=== PATIENT | male | born 1965 | race American Indian/Alaskan Native ===

== ENCOUNTER 2020-08-21 20:41 | Observation (INO) | payer MEDICAID ==
[2020-08-21] MEDS ORDERED: ASPIRIN 325 MG TAB PO ONE (23:06)
[2020-08-21] MEDS ORDERED: ONDANSETRON 4 MG/2 ML INJ IV ONE (23:31)
[2020-08-21] MEDS ORDERED: MORPHINE 4 MG/1 ML INJ IV ONE (23:31)
[2020-08-21] MEDS ORDERED: NITROGLYCERIN 2% OINT 1 GM TP ONE (23:31)
[2020-08-21 23:33] LABS: Basophils % (Auto) 0.6 % (0.0-1.8); Eosinophils # (Auto) 0.1 K/mm3 (0.0-0.4); Eosinophils % (Auto) 1.3 % (0.0-4.3); Hematocrit 40.6 % (35.5-45.6); Hemoglobin 13.4 gm/dl (11.8-15.2); Lymphocytes # (Auto) 1.8 K/mm3 (1.2-5.4); Lymphocytes % (Auto) 22.1 % (13.4-35.0); Mean Corpuscular HGB Conc 33 % (32-34); Mean Corpuscular Volume 93 fl (84-94); Monocytes # (Auto) 0.6 K/mm3 (0.0-0.8); Monocytes % (Auto) 7.3 % (0.0-7.3); Platelet Count 273 K/mm3 (140-440); Red Blood Count 4.37 M/mm3 (3.65-5.03); Red Cell Distribution Width 14.5 % (13.2-15.2)
--- NOTE | 2020-08-21 23:35 | Emergency Department Report ---
HPI - General Chief Complaint: High BP Time Seen by Provider: 08/21/20 23:23 - HPI HPI: Room 43 The patient is a 54-year-old male present with a chief complaint of chest pain and hypertension. The patient states he went to [facility] today to detox from cocaine and during intake he was found to be hypertensive and had complained of chest pain so he was sent to the ED for medical clearance. Patient states he developed substernal chest pain today and has been sharp and intermittent in nature. Patient admits to shortness of breath associated with this chest pain but denies nausea/vomiting or diaphoresis. Patient states his last cocaine use occurred 3 days prior to arrival. Patient states his last stress test occurred approximate 1 year ago but he is never had a cardiac catheterization ED Past Medical Hx - Past Medical History Hx Hypertension: Yes Hx Congestive Heart Failure: Yes - Surgical History Additional Surgical History: left knee - Family History Family history: no significant - Social History Smoking Status: Never Smoker Substance Use Type: Alcohol (Occasional), Cocaine ED Review of Systems ROS: Stated complaint: ELEVATED BLOOD PRESSURE Other details as noted in HPI Constitutional: denies: diaphoresis Respiratory: shortness of breath Cardiovascular: chest pain Endocrine: no symptoms reported Gastrointestinal: denies: nausea, vomiting Physical Exam - Physical Exam Vital Signs: Vital Signs 08/21/20 20:51 Temperature 98.7 F Pulse Rate 83 Respiratory 15 Rate Blood Pressure 155/105 O2 Sat by Pulse 97 Oximetry Physical Exam: GENERAL: The patient is well-developed well-nourished male lying on chair not appearing to be in acute distress. [] HEENT: Normocephalic. Atraumatic. Extraocular motions are intact. Patient has moist mucous membranes. NECK: Supple. Trachea midline CHEST/LUNGS: Clear to auscultation. There is no respiratory distress noted. HEART/CARDIOVASCULAR: Regular. There is no tachycardia. There is no gallop rub or murmur. ABDOMEN: Abdomen is soft, nontender. Patient has normal bowel sounds. There is no abdominal distention. SKIN: There is no rash. There is no edema. There is no diaphoresis. NEURO: The patient is awake, alert, and oriented. The patient is cooperative. The patient has normal speech MUSCULOSKELETAL: There is no evidence of acute injury. ED Course Vital Signs 08/21/20 20:51 Temperature 98.7 F Pulse Rate 83 Respiratory 15 Rate Blood Pressure 155/105 O2 Sat by Pulse 97 Oximetry ED Medical Decision Making - Lab Data Result diagrams: 08/21/20 23:13 08/21/20 23:13 Laboratory Tests 08/21/20 08/21/20 08/21/20 23:13 23:13 23:13 WBC 8.3 RBC 4.37 Hgb 13.4 Hct 40.6 MCV 93 MCH 31 MCHC 33 RDW 14.5 Plt Count 273 Lymph % (Auto) 22.1 [place] % (Auto) 7.3 Eos % (Auto) 1.3 Baso % (Auto) 0.6 Lymph # (Auto) 1.8 [place] # (Auto) 0.6 Eos # (Auto) 0.1 Baso # (Auto) 0.0 Seg Neutrophils % 68.7 Seg Neutrophils # 5.7 Sodium 146 H Potassium 4.4 Chloride 107.0 Carbon Dioxide 28 Anion Gap 15 BUN 31 H Creatinine 2.1 H Estimated GFR 40 BUN/Creatinine Ratio 15 Glucose 73 L Calcium 9.4 Total Bilirubin 0.40 AST 17 ALT 15 Alkaline Phosphatase 105 Total Creatine Kinase CK-MB (CK-2) CK-MB (CK-2) Rel Index Troponin T < 0.010 NT-Pro-B Natriuret Pep 1963 H Total Protein 6.9 Albumin 3.9 Albumin/Globulin Ratio 1.3 08/21/20 23:13 WBC RBC Hgb Hct MCV MCH MCHC RDW Plt Count Lymph % (Auto) [place] % (Auto) Eos % (Auto) Baso % (Auto) Lymph # (Auto) [place] # (Auto) Eos # (Auto) Baso # (Auto) Seg Neutrophils % Seg Neutrophils # Sodium Potassium Chloride Carbon Dioxide Anion Gap BUN Creatinine Estimated GFR BUN/Creatinine Ratio Glucose Calcium Total Bilirubin AST ALT Alkaline Phosphatase Total Creatine Kinase 222 H CK-MB (CK-2) 4.7 H CK-MB (CK-2) Rel Index 2.1 Troponin T NT-Pro-B Natriuret Pep Total Protein Albumin Albumin/Globulin Ratio - EKG Data -: EKG Interpreted by Me EKG shows normal: sinus rhythm Rate: normal - EKG Data When compared to previous EKG there are: previous EKG unavailable Interpretation: nonspecific ST-T wave swetha (T wave inversion in lead aVL), LVH - Radiology Data Radiology results: report reviewed (Chest x-ray), image reviewed (Chest x-ray) interpreted by me: Chest x-ray-no focal infiltrates, no pneumothorax, no foreign body [facility] [address] [place] [address] XRay Report Signed Patient: KIMBERLY METCALF MR#: [id number] : 1965 Acct:[id number] Age/Sex: 54 / M ADM Date: 08/21/20 Loc: ED Attending Dr: Ordering Physician: JONO WINTER Date of Service: 08/21/20 Procedure(s): XR chest 1V ap Accession Number(s): [id number] cc: JONO WINTER Fluoro Time In Minutes: CHEST 1 VIEW INDICATION: chest pain, elevated BP COMPARISON: None FINDINGS: Support devices: None Heart: Normal Lungs/Pleura: Small calcified nodules on the left. No acute disease. IMPRESSION: 1. No acute abnormalities. Signer Name: Juan F Sanchez MD Signed: 08/22/2020 12:12 AM Workstation Name: [id number] Transcribed By: TM Dictated By: Juan F Sanchez MD Electronically Authenticated By: Juan F Sanchez MD Signed Date/Time: 08/22/2011 DD/ TD/TT: - Differential Diagnosis ACS, pericarditis, GERD Critical care attestation.: If time is entered above; I have spent that time in minutes in the direct care of this critically ill patient, excluding procedure time. ED Disposition Clinical Impression: Chest pain, Cocaine abuse Disposition: OP ADMIT IP TO THIS HOSP Is pt being admited?: Yes Does the pt Need Aspirin: Yes Condition: Fair Instructions: Chest Pain (ED) Referrals: PRIMARY CARE, [Primary Care Provider] - 3-5 Days Time of Disposition: 01:11 (Hospitalist notified (Dr Conrad)) HEART Score - HEART Score History: Moderately suspicious EKG: Non-specific Age: 45-65 Risk factors: > 3 risk factors or hx of atherosclerotic disease Troponin: < normal limit HEART Score: 5
[2020-08-22] LABS: Albumin 3.9 g/dL (3.9-5); Calcium 9.4 mg/dL (8.4-10.2)
--- NOTE | 2020-08-22 00:17 | XRay Report ---
CHEST 1 VIEW INDICATION: chest pain, elevated BP COMPARISON: None FINDINGS: Support devices: None Heart: Normal Lungs/Pleura: Small calcified nodules on the left. No acute disease. IMPRESSION: 1. No acute abnormalities. Signer Name: Juan F Sanchez MD Signed: 08/22/2020 12:12 AM Workstation Name: [id number]
[2020-08-22 00:23] LABS: Creatine Kinase MB 4.7 ng/mL (0.0-4.0)
[2020-08-22] MEDS ORDERED: ACETAMINOPHEN 325 MG TAB PO PRN ×2 (02:19)
[2020-08-22] MEDS ORDERED: NITROGLYCERIN 0.4 MG TAB SUBL SL PRN (02:19)
[2020-08-22] MEDS ORDERED: MORPHINE 4 MG/1 ML INJ IV PRN (02:19)
[2020-08-22] MEDS ORDERED: ONDANSETRON 4 MG/2 ML INJ IV PRN (02:19)
[2020-08-22] MEDS ORDERED: MAGNESIUM HYDROXIDE (MOM) ORAL LIQD UDC PO PRN (02:19)
--- NOTE | 2020-08-22 02:32 | History and Physical Report ---
History of Present Illness Date of examination: 08/22/20 Date of admission: 08/22/20 00:34 Chief complaint: Chest Pain History of present illness: Patient is a 54-year-old male with known history of hypertension presenting to the emergency room today complaining of chest pain. Patient indicates that he went to [facility] for detox from cocaine and was found to be hypertensive and had also complained of chest pain. Was subsequently sent to the emergency room for further evaluation and medical clearance. Chest pain is said to be substernal with no radiation. Pain is worse on exertion and gets better on resting. He admits to using cocaine and last use was about 3 to 5 days ago. He had a stress test about a year ago which he said was within normal limits. Patient denies any fever or chills, no headache or dizziness, no nausea vomiting. He had some shortness of breath. Work-up in the emergency room today has been unremarkable. Past History Past Medical History: hypertension Past Surgical History: Other (Left Knee) Social history: alcohol abuse (Occasional alcohol), other (Uses Cocaine- last use 5 days ago) Family history: no significant family history Medications and Allergies Allergies Allergy/AdvReac Type Severity Reaction Status Date / Time No Known Allergies Allergy Unverified 08/21/20 20:50 Active Meds: Active Medications Pneumococcal Polyvalent Vaccine (Pneumovax 23) 0.5 ml IM .ONCE ONE Stop: 08/22/20 12:01 Review of Systems Constitutional: no fever, no chills Ears, nose, mouth and throat: no nasal congestion, no sore throat Cardiovascular: chest pain, no palpitations Respiratory: no cough, no shortness of breath Gastrointestinal: no abdominal pain, no nausea, no vomiting, no diarrhea Genitourinary Male: no dysuria, no hematuria, no flank pain Musculoskeletal: no neck pain, no low back pain Integumentary: no rash, no pruritis Neurological: no headaches, no confusion Psychiatric: no anxiety, no depression Exam - Constitutional Vitals: Temp Pulse Resp BP Pulse Ox 98.7 F 60 15 161/102 99 08/21/20 20:51 08/22/20 02:15 08/22/20 00:30 08/22/20 00:30 08/22/20 00:30 General appearance: Present: no acute distress, well-nourished - EENT Eyes: Present: PERRL, EOM intact. Absent: scleral icterus ENT: hearing intact, clear oral mucosa, dentition normal - Neck Neck: Present: supple, normal ROM - Respiratory Respiratory effort: normal Respiratory: bilateral: CTA - Cardiovascular Rhythm: regular Heart Sounds: Present: S1 & S2. Absent: gallop, systolic murmur, diastolic murmur, rub - Extremities Extremities: no ischemia, pulses intact, pulses symmetrical, No edema, Full ROM Peripheral Pulses: within normal limits - Abdominal General gastrointestinal: Present: soft, non-tender, non-distended, normal bowel sounds. Absent: mass - Integumentary Integumentary: Present: clear, warm, dry. Absent: rash - Musculoskeletal Musculoskeletal: strength equal bilaterally - Psychiatric Psychiatric: appropriate mood/affect, intact judgment & insight, cooperative - Neurologic Neurologic: CNII-XII intact, no focal deficits, moves all extremities HEART Score - HEART Score History: Moderately suspicious EKG: Non-specific Age: 45-65 Risk factors: > 3 risk factors or hx of atherosclerotic disease Troponin: Troponin T < 0.010 ng/mL (0.00-0.029) 08/21/20 23:13 Troponin: < normal limit HEART Score: 5 Results - Labs CBC & Chem 7: 08/22/20 05:11 08/22/20 05:11 Labs: Abnormal lab results 08/21/20 08/21/20 Range/Units 23:13 23:13 Sodium 146 H (137-145) mmol/L BUN 31 H (9-20) mg/dL Creatinine 2.1 H (0.8-1.3) mg/dL Glucose 73 L (75-100) mg/dL Total Creatine Kinase 222 H (55-170) units/L CK-MB (CK-2) 4.7 H (0.0-4.0) ng/mL NT-Pro-B Natriuret Pep 1963 H (0-900) pg/mL Assessment and Plan - Patient Problems (1) Chest pain Current Visit: Yes Status: Acute Plan to address problem: We will admit patient to telemetry. Will monitor serial cardiac enzymes. Patient be placed on aspirin, sublingual nitroglycerin and IV morphine as needed for chest pain. We will place a consult to cardiology for further evaluation. (2) Cocaine abuse Current Visit: Yes Status: Acute Plan to address problem: Patient counseled on quitting illicit drug use. (3) Hypertension Current Visit: Yes Status: Acute Plan to address problem: We will monitor vital signs and resume routine home medications. (4) JAY (acute kidney injury) Current Visit: Yes Status: Acute Plan to address problem: Will monitor BUN and creatinine. We will request nephrology evaluation. (5) DVT prophylaxis Current Visit: Yes Status: Acute Plan to address problem: Patient placed on subcutaneous heparin. (6) Full code status Current Visit: Yes Status: Acute
[2020-08-22 05:38] LABS: Basophils # (Auto) 0.1 K/mm3 (0.0-0.1); Basophils % (Auto) 0.9 % (0.0-1.8); Eosinophils # (Auto) 0.1 K/mm3 (0.0-0.4); Eosinophils % (Auto) 1.4 % (0.0-4.3); Hematocrit 37.5 % (35.5-45.6); Hemoglobin 12.7 gm/dl (11.8-15.2); Lymphocytes # (Auto) 1.8 K/mm3 (1.2-5.4); Lymphocytes % (Auto) 25.6 % (13.4-35.0); Mean Corpuscular HGB Conc 34 % (32-34); Mean Corpuscular Volume 92 fl (84-94); Monocytes # (Auto) 0.5 K/mm3 (0.0-0.8); Monocytes % (Auto) 6.9 % (0.0-7.3); Platelet Count 256 K/mm3 (140-440); Red Blood Count 4.08 M/mm3 (3.65-5.03); Red Cell Distribution Width 14.1 % (13.2-15.2)
[2020-08-22 05:55] LABS: Calcium 9.1 mg/dL (8.4-10.2); Chol/HDL Ratio 2.09 %
[2020-08-22] MEDS: HEPARIN 5,000 UNIT/1 ML VIAL SUB-Q SCH ×2 (06:02→14:45)
[2020-08-22] MEDS ORDERED: REGADENOSON 0.4 MG/5 ML INJ IV ONE ×2 (06:52→08:47)
--- NOTE | 2020-08-22 09:36 | Consultation ---
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, renal consult was requested for evaluation of abnormal kidney function Past History Past Medical History: hypertension Past Surgical History: Other (Left Knee) Social history: alcohol abuse (Occasional alcohol), other (Uses Cocaine- last use 5 days ago) Family history: no significant family history Medications and Allergies Allergies Allergy/AdvReac Type Severity Reaction Status Date / Time No Known Allergies Allergy Unverified 08/21/20 20:50 Active Meds: Active Medications Acetaminophen (Tylenol) 650 mg PO Q4H PRN PRN Reason: Pain MILD(1-3)/Fever >100.5/SHAFFER Amlodipine Besylate (Amlodipine) 10 mg PO QDAY JOSE DANIEL Aspirin (Ecotrin) 325 mg PO QDAY [facility] Heparin Sodium (Porcine) (Heparin) 5,000 unit SUB-Q Q8HR [facility] Last Admin: 08/22/20 06:02 Dose: 5,000 unit Documented by: Magnesium Hydroxide (Milk Of Magnesia) 30 ml PO Q4H PRN PRN Reason: Constipation Morphine Sulfate (Morphine) 2 mg IV Q5MIN PRN PRN Reason: Chest Pain Nitroglycerin (Nitrostat) 0.4 mg SL Q5M PRN PRN Reason: Chest Pain Ondansetron HCl (Zofran) 4 mg IV Q8H PRN PRN Reason: Nausea And Vomiting Pneumococcal Polyvalent Vaccine (Pneumovax 23) 0.5 ml IM .ONCE ONE Stop: 08/22/20 12:01 Sodium Chloride (Sodium Chloride Flush Syringe 10 Ml) 10 ml IV BID JOSE DANIEL Sodium Chloride (Sodium Chloride Flush Syringe 10 Ml) 10 ml IV PRN PRN PRN Reason: LINE FLUSH Review of Systems All systems: negative (chest pain) Exam - Vital Signs Vital signs: Vital Signs Temp Pulse Resp BP Pulse Ox 98.7 F 83 15 155/105 97 08/21/20 20:51 08/21/20 20:51 08/21/20 20:51 08/21/20 20:51 08/21/20 20:51 - General Appearance General appearance: well-developed, well-nourished, appears stated age EENT: ATNC, PERRL, mucous membranes moist Neck: Present: neck supple Respiratory: Clear to Ascultation Heart: regular, S1S2 Gastrointestinal: Present: normoactive bowel sounds. Absent: tenderness, distended, masses, guarding Integumentary: no rash, warm and dry Neurologic: no focal deficit, no asterixis, alert and oriented x3 Musculoskeletal: Present: other (no edema in BLE) Psychiatric: mood/affect appropriate, cooperative Results - Lab Results 08/22/20 05:11 08/22/20 05:11 Most recent lab results Calcium 9.1 mg/dL (8.4-10.2) 08/22/20 05:11 Assessment and Plan (1) Chest pain (2) Cocaine abuse (3) Hypertension (4) JAY (acute kidney injury) (5) DVT prophylaxis acute renal failure on possible CKD, prerenal azotemia vs. ATN from sepsis will start gentle NS hydration 75 cc/h urine lytes, protei and eos ordered renal US ordered renally dose meds strict I&O faily weight Pipo Galindo MD [phone]
[2020-08-22] MEDS ORDERED: amLODIPine 10 MG TAB PO SCH (10:00)
[2020-08-22] MEDS ORDERED: SODIUM CHLORIDE 0.9% 1000 ML 1,000 ML IV SCH (10:00)
--- NOTE | 2020-08-22 11:24 | Consultation ---
History of Present Illness Consult date: 08/22/20 Requesting physician: ARLETTE MEDRANO Consult reason: chest pain History of present illness: The patient is a 54-year-old male with a past medical history of hypertension and cocaine abuse. He is previously unknown to our practice. He presented with c/o substernal chest pain for several hours prior to arrival. Patient reportedly went to [facility] for detox from cocaine and was found to be hypertensive with c/o chest pain and thus was referred to ED for further evaluation and "medical clearance" for drug detox. Pt denies any SOB, palpitations, n/ v, diaphoresis, dizziness or syncope. Pt reports last cocaine use was 3 to 5 days ago. Pt reports he underwent stress testing approx 1 year ago which he said was normal. Past History Past Medical History: hypertension Past Surgical History: Other (Left Knee) Social history: other (cocaine use) Family history: no significant family history Medications and Allergies Allergies Allergy/AdvReac Type Severity Reaction Status Date / Time No Known Allergies Allergy Unverified 08/21/20 20:50 Active Meds: Active Medications Acetaminophen (Tylenol) 650 mg PO Q4H PRN PRN Reason: Pain MILD(1-3)/Fever >100.5/SHAFFER Amlodipine Besylate (Amlodipine) 10 mg PO QDAY JOSE DANIEL Aspirin (Ecotrin) 325 mg PO QDAY JOSE DANIEL Heparin Sodium (Porcine) (Heparin) 5,000 unit SUB-Q Q8HR [facility] Last Admin: 08/22/20 06:02 Dose: 5,000 unit Documented by: Sodium Chloride (Nacl 0.9% 1000 Ml) 1,000 mls @ 75 mls/hr IV DIRECT JOSE DANIEL Magnesium Hydroxide (Milk Of Magnesia) 30 ml PO Q4H PRN PRN Reason: Constipation Morphine Sulfate (Morphine) 2 mg IV Q5MIN PRN PRN Reason: Chest Pain Nitroglycerin (Nitrostat) 0.4 mg SL Q5M PRN PRN Reason: Chest Pain Ondansetron HCl (Zofran) 4 mg IV Q8H PRN PRN Reason: Nausea And Vomiting Pneumococcal Polyvalent Vaccine (Pneumovax 23) 0.5 ml IM .ONCE ONE Stop: 08/22/20 12:01 Sodium Chloride (Sodium Chloride Flush Syringe 10 Ml) 10 ml IV BID JOSE DANIEL Sodium Chloride (Sodium Chloride Flush Syringe 10 Ml) 10 ml IV PRN PRN PRN Reason: LINE FLUSH Review of Systems Constitutional: no weight loss, no weight gain, no fever, no chills, no sweats Ears, nose, mouth and throat: no ear pain, no nose pain, no sinus pressure, no sinus pain Cardiovascular: chest pain, no orthopnea, no palpitations, no rapid/irregular heart beat, no edema, no syncope, no lightheadedness, no shortness of breath, no dyspnea on exertion Respiratory: no cough, no shortness of breath, no dyspnea on exertion, no congestion, no wheezing, no pain on inspiration Gastrointestinal: no abdominal pain, no nausea, no vomiting, no diarrhea, no constipation, no change in bowel habits Genitourinary Male: no dysuria, no hematuria, no flank pain, no discharge, no urinary frequency, no urinary hesitancy Musculoskeletal: no neck stiffness, no neck pain, no shooting arm pain, no arm numbness/tingling, no low back pain, no shooting leg pain Integumentary: no rash, no pruritis, no redness, no sores, no wounds Neurological: no head injury, no paralysis, no weakness, no parathesias, no numbness, no tingling, no seizures, no syncope Psychiatric: no anxiety Endocrine: no cold intolerance, no heat intolerance Hematologic/Lymphatic: no easy bruising, no easy bleeding Allergic/Immunologic: no urticaria Physical Examination Vital Signs Temp Pulse Resp BP Pulse Ox 98.7 F 83 15 155/105 97 08/21/20 20:51 08/21/20 20:51 08/21/20 20:51 08/21/20 20:51 08/21/20 20:51 General appearance: no acute distress HEENT: Positive: PERRL, Normocephaly, Mucus Membranes Moist Neck: Positive: neck supple, trachea midline Cardiac: Positive: Reg Rate and Rhythm, S1/S2 Lungs: Positive: Decreased Breath Sounds Neuro: Positive: Grossly Intact Abdomen: Negative: Tender Musculoskeletal: No Pain Extremities: Absent: edema Results 08/22/20 05:11 08/22/20 05:11 Cardiac Enzymes 08/21/20 08/21/20 Range/Units 23:13 23:13 AST 17 (5-40) units/L CK-MB (CK-2) 4.7 H (0.0-4.0) ng/mL Lipids 08/22/20 Range/Units 05:11 Triglycerides 46 (2-149) mg/dL Cholesterol 161 (50-199) mg/dL HDL Cholesterol 77 H (40-59) mg/dL Cholesterol/HDL Ratio 2.09 % CBC 08/21/20 08/22/20 Range/Units 23:13 05:11 WBC 8.3 7.0 (4.5-11.0) K/mm3 RBC 4.37 4.08 (3.65-5.03) M/mm3 Hgb 13.4 12.7 (11.8-15.2) gm/dl Hct 40.6 37.5 (35.5-45.6) % Plt Count 273 256 (140-440) K/mm3 Lymph # (Auto) 1.8 1.8 (1.2-5.4) K/mm3 [place] # (Auto) 0.6 0.5 (0.0-0.8) K/mm3 Eos # (Auto) 0.1 0.1 (0.0-0.4) K/mm3 Baso # (Auto) 0.0 0.1 (0.0-0.1) K/mm3 Comprehensive Metabolic Panel 08/21/20 08/22/20 Range/Units 23:13 05:11 Sodium 146 H 144 (137-145) mmol/L Potassium 4.4 3.7 (3.6-5.0) mmol/L Chloride 107.0 108.3 H (98-107) mmol/L Carbon Dioxide 28 30 (22-30) mmol/L BUN 31 H 29 H (9-20) mg/dL Creatinine 2.1 H 1.9 H (0.8-1.3) mg/dL Glucose 73 L 88 (75-100) mg/dL Calcium 9.4 9.1 (8.4-10.2) mg/dL AST 17 (5-40) units/L ALT 15 (7-56) units/L Alkaline Phosphatase 105 (35-129) units/L Total Protein 6.9 (6.3-8.2) g/dL Albumin 3.9 (3.9-5) g/dL - Imaging and Cardiology EKG: report reviewed, image reviewed EKG interpretations - Telemetry EKG Rhythm: Sinus Rhythm - EKG Sinus rhythms and dysrhythmias: sinus rhythm Assessment and Plan Chest pain currently resolved. AMI r/o. S/p lexiscan MPI stress test today which was negative. tte pending. Currently stable cardiac status. Pt may discharge from cardiology standpoint. Recommend follow up in our office with Dr. Gamez within 2 weeks ([phone]). The patient has been seen in conjunction with Dr. Gamez who agrees with the assessment and plan of care. - Patient Problems (1) Chest pain Current Visit: Yes Status: Resolved (2) JAY (acute kidney injury) Current Visit: Yes Status: Acute (3) Cocaine abuse Current Visit: Yes Status: Chronic (4) Hypertension Current Visit: Yes Status: Chronic
[2020-08-22] MEDS ORDERED: PNEUMOCOCCAL 23 Valent 0.5 ML VIAL IM ONE (12:00)
--- NOTE | 2020-08-22 13:32 | Discharge Summary ---
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 Patient indicates that he went to [facility] for detox from cocaine and was found to be hypertensive and had also complained of chest pain. He was subsequently sent to the emergency room for further evaluation and medical clearance. Chest pain is said to be substernal with no radiation. Pain is worse on exertion and gets better on resting. He admits to using cocaine and last use was about 3 to 5 days prior to presentation. He had a stress test about a year ago which he said was within normal limits. Patient denies any fever or chills, no headache or dizziness, no nausea vomiting. He had some shortness of breath. In the ER, his EKG did not show any ischemic abnormalities. Troponin x3-. Patient was admitted for stress test. Cardiology was consulted. He also was found to have JAY and nephrology was consulted. His renal function has improved. Patient had a stress test performed today that showed no reversible ischemia. Patient has been cleared from cardiology standpoint for discharge. He has been advised to follow-up with Dr Khan within 2 weeks ([phone]. He will follow up with nephrology in the office. I have stressed the need to stop drug use. Disposition: DC-01 TO HOME OR SELFCARE - Discharge Diagnoses (1) Cocaine abuse Status: Chronic (2) Hypertension Status: Chronic (3) Chest pain Status: Resolved Core Measure Documentation - Palliative Care Palliative Care/ Comfort Measures: Not Applicable - Core Measures Any of the following diagnoses?: none Exam - Constitutional Vitals: Temp Pulse Resp BP Pulse Ox 98.0 F 67 18 158/100 98 08/22/20 07:48 08/22/20 08:15 10/06/20 07:48 08/22/20 11:49 08/22/20 07:48 General appearance: Present: no acute distress, well-nourished - EENT Eyes: Present: PERRL ENT: hearing intact, clear oral mucosa - Neck Neck: Present: supple, normal ROM - Respiratory Respiratory effort: normal Respiratory: bilateral: CTA - Cardiovascular Heart Sounds: Present: S1 & S2. Absent: rub, click - Extremities Extremities: pulses symmetrical, No edema Peripheral Pulses: within normal limits - Abdominal General gastrointestinal: Present: soft, non-tender, non-distended, normal bowel sounds Male genitourinary: Present: normal - Integumentary Integumentary: Present: clear, warm, dry - Musculoskeletal Musculoskeletal: gait normal, strength equal bilaterally - Psychiatric Psychiatric: appropriate mood/affect, intact judgment & insight - Neurologic Neurologic: CNII-XII intact, moves all extremities Plan Diet: low salt Additional Instructions: Follow-up with cardiology in the office. Dr Khan within 2 weeks ([phone]. Follow up with nephrology in 1-2 weeks. Avoid any ibuprofen, naproxen or any NSAIDs. Continue drug rehab. Stop cocaine abuse. Continue medications as prescribed Follow up with: PRIMARY CARE, [Primary Care Provider] - 3-5 Days CHARLEEN KHAN MD [Staff Physician] - 7 Days TASNEEM THOMPSON MD [Staff Physician] - 7 Days Prescriptions: amLODIPine 10 mg PO QDAY #30 tablet hydrALAZINE [Apresoline TAB] 50 mg PO Q8HR #120 tab
[2020-08-22] MEDS ORDERED: hydrALAZINE 100 MG TAB PO ONE (16:27)
--- NOTE | 2020-08-22 16:31 | Ultrasound Report ---
US renal BILAT INDICATION / CLINICAL INFORMATION: renal failure. COMPARISON: None available. FINDINGS: The right kidney measures 9.8 cm and the left kidney measures 11.5 cm. Small stones are seen in both kidneys. A small cyst is seen in the upper pole of the right kidney. There is no evidence of hydronep hrosis. The bladder is normal. IMPRESSION: 1. Small stones in both kidneys 2. Small right upper pole renal cyst Signer Name: Daniel Brink MD FACR Signed: 08/22/2020 4:26 PM Workstation Name: [id number]
[2020-08-22 18:40] VITALS: BP 154/103
[2020-08-23] MEDS ORDERED: ASPIRIN EC 325 MG TAB PO SCH (10:00)
--- NOTE | 2020-08-23 22:50 | Treadmill Report ---
NUCLEAR CARDIAC PERFUSION STUDY REASON FOR STUDY: CHF. IMAGING PROTOCOL: The patient received 10 mCi of Technetium 99m Tetrofosmin for resting image and 28 mCi of Technetium 99m Tetrofosmin for stress imaging. The imaging for the whole procedure was completed 30-90 minutes following the initial injection of Technetium 99m Tetrofosmin. The SPECT imaging in the 180 degree arc was performed in the right anterior oblique projection. Computerized reconstruction of the images was performed for analysis. IMAGING RESULTS: Cavity is dilated both stress and rest. Distribution radionuclide is normal in the anterior, inferior, septal and apical regions. Gated SPECT imaging, EF 20% with moderate to severe global hypokinesis. The patient infused Lexiscan with no EKG changes. SUMMARY: 1. Negative Lexiscan EKG. 2. No significant myocardial ischemia noted with dilated LV seen both stress and rest with normal myocardial perfusion, but the EF of 20%, suggestive of nonischemic cardiomyopathy. JOB# [id number] JM/MARTHA
== END 2020-08-22 20:30 | disposition home or self-care (01) ==
LOC: ED 20:41 → 4A 08-22 00:34
PROVIDERS: ADMIT Internal Medicine Geriatric Medicine; ATTEND Internal Medicine
DX: R07.89 Other chest pain (principal); N17.9 Acute kidney failure, unspecified; I10 Essential (primary) hypertension; F14.10 Cocaine abuse, uncomplicated; Z98.890 Other specified postprocedural states; Z79.82 Long term (current) use of aspirin; Z79.899 Other long term (current) drug therapy
CPT/HCPCS: 36415; 71045; 76770; 78452; 80048; 80053; 80061; 82550; 82553; 83880; 84484; 85025; 93005; 93017; 93306; 96372; 96374; 96375; 99285; A9502; G0378; J1644; J2270; J2405; J2785